=== PATIENT | female | born 1940 | race Caucasian/White ===

== ENCOUNTER 2022-05-08 08:00 | Day surgery (SDC) | payer OTHER, MEDICAID, SELFPAY ==
[2022-04-25 10:20] VITALS: BMI 25.4
--- NOTE | 2022-05-08 07:41 | WPDHPUPDATE1 ---
History and Physical Update Update Date/Time: 05/08/22 07:41 History and Physical has been reviewed, including an updated exam of the patient. There are NO changes in the patient's condition. Risks, benefits, and alternatives have been discussed and questions answered. Patient agrees to proceed with procedure.
--- NOTE | 2022-05-08 07:44 | P.OP_ITS ---
Procedure Note - Detailed Date of Procedure 05/08/22 Pre-op Diagnosis Fuch's Corneal Dystrophy Post-op Diagnosis Same Procedure Performed DMEK OD eye Surgeon Henry Guo MD Anesthesia MAC (with peribulbar block) and Other (Monitored anesthesia care and local retrobulbar block) Description of Procedure Following discussion of the risks, benefits, and alternatives, informed consent was obtained and the surgical permission form was signed and witnessed. The operative site was marked in the holding area after consulting the patient's office chart. Monitoring devices were placed on the patient and the patient was positioned in the supine position. After an appropriate intravenous sedation, a peribulbar block was given to the operative eye using a 25 gauge 5/8 inch needle. A total of 4 cc of a mixture of 0.75% Marcaine and 2% lidocaine was given. The patient was then prepped and draped in the normal sterile ophthalmic fashion. A Janes eyelid speculum was inserted into the operative eye. A 15-degree blade was used to make two paracenteses sites. The 8 mm optical zone marker was used to dominik the surface of the cornea. Provisc was injected into the anterior chamber to deepen and firm it. A 2.4 mm keratome was used to create a triplanar clear cornea incision temporally. The previously made inferior peripheral iridotomy was examined and noted to be patent. A reverse Sinskey hook was used to score Descemet's membrane just outside the 8 mm optical zone dominik. A Moiz's Descemet's stripper was used to remove the host Descemet's membrane. The irrigation and aspiration was used to remove any residual viscoelastic from the anterior chamber. Attention was then directed to the donor corneal button which was lightly punched endothelial side up using an 7.75mm punch. The Descemet's membrane was tripped carefully and the scroll stained with trypan blue stain. The donor Descemet's scroll was loaded into the [employer] tube injector and slowly injected into the anterior chamber with care so as to keep the chamber shallow. A single 10-0 nylon suture was used to close the corneal wound. BSS was injected into the anterior chamber to unfold the tissue. Care was taken to ensure correct orientation with endothelium on outside of DM curl. The graft was unfolded using tapping motions and then centered using golf swing motions on the cornea. A full anterior chamber fill with 20% SF6 gas/80% filtered air was then given to float the donor lenticule. All knots were cut short and buried. At the end of the case, the gas bubble was reduced to expose the inferior angle with the patient in an upright position,. The eyelid speculum was removed and the patient's face and eye were cleaned with wet and dry gauze. Antibiotic, steroid and ointment were applied to the operative eye. The eye was patched with an eye pad and a omer shield. The patient was taken to the recovery room in a stable condition. The patient was left lying in supine position with nose up towards the ceiling positioning for a further 2 hours in the holding area. Sponges, needle and instrument counts: all correct at conclusion of the case. Complications None Condition Stable Disposition Same day
[2022-05-08] MEDS: OFLOXACIN 0.3% OPHTH SOLN 5 ML BTL 1 DROP AFFCTD EYE (08:32)
[2022-05-08] MEDS: TETRACAINE HCL 0.5% OPHTH SOLN 4 ML BTL 1 DROP AFFCTD EYE ×3 (08:33→08:43)
[2022-05-08] MEDS: PILOCARPINE HCL 2% OP SOLN 15 ML BTL 1 DROP AFFCTD EYE ×3 (08:33→08:42)
[2022-05-08 08:35] VITALS: BP 108/52; PULSE 63; RESP 20; TEMP 37; O2SAT 98
--- NOTE | 2022-05-08 08:53 | WPDHPUPDATE1 ---
History and Physical Update Update Date/Time: 05/08/22 08:53 History and Physical has been reviewed, including an updated exam of the patient. There are NO changes in the patient's condition. Risks, benefits, and alternatives have been discussed and questions answered. Patient agrees to proceed with procedure.
[2022-05-08] MEDS: LIDOCAINE HCL 2% JELLY 5 ML TUBE 1 APPLIC AFFCTD EYE (09:03)
--- NOTE | 2022-05-08 09:03 | P.PNAN_ITS ---
Anes - Initial Pre Proc Eval Procedure: Operation Date: 05/08/22 09:00 Proposed Procedures p Descemet Membrane Endothelial Keratoplasty-Right Eye - Henry Guo MD Date/Time: 05/08/22 09:03 Surgeon: Henry Guo MD Pre Op Diagnosis: Fuch's Corneal Dystrophy Patient Data Age: 82 Gender: F Height: 1.52 m Weight: 59 kg Last Vital Signs Temp 37.0 C 05/08/22 08:35 Pulse 63 05/08/22 08:35 Resp 20 05/08/22 08:35 BP 108/52 L 05/08/22 08:35 Pulse Ox 98 05/08/22 08:35 O2 Del Method Room Air 05/08/22 08:35 Allergies Allergy/AdvReac Type Severity Reaction Status Date / Time No Known Allergies Allergy Verified 05/08/22 08:27 Home Medications Medication Instructions Recorded Confirmed Type albuterol sulfate 90 mcg/actuation 1 inh inhalation PRN 04/25/22 05/08/22 History aerosol inhaler amlodipine 5 mg tablet 1 tablet PO DAILY 04/25/22 05/08/22 History aspirin 81 mg chewable tablet 81 mg PO DAILY 04/25/22 05/08/22 History (Aspirin Childrens) atorvastatin 40 mg tablet 1 tablet PO DAILY 04/25/22 05/08/22 History carvedilol 6.25 mg tablet 1 tablet PO BID 04/25/22 05/08/22 History cetirizine 10 mg tablet (Zyrtec) 10 mg PO DAILY 04/25/22 05/08/22 History fluorometholone 0.1 % eye 1 drp LEFT EYE DAILY 04/25/22 05/08/22 History drops,suspension furosemide 20 mg tablet 1 tablet PO DAILY 04/25/22 05/08/22 History lisinopril 20 mg tablet 1 tablet PO DAILY 04/25/22 05/08/22 History prednisone 2.5 mg tablet 1 tablet PO DAILY 04/25/22 05/08/22 History tramadol 50 mg tablet 1 tablet PO PRN 04/25/22 05/08/22 History Patient hx anesthesia problems: none Family hx anesthesia problems: none Results Review: All pre-operative results and documents have been reviewed as part of the pre- operative evaluation. [facility] Past Medical History Medical History CAD (coronary artery disease) CVA (cerebral vascular accident) Hyperlipidemia Hypertension Surgical History Surgical History Stented coronary artery Social History Social History Smoking status: Never smoker Alcohol intake: current Substance use: never Substance use type: does not use Living arrangements: with family Spiritual care concerns: No Anes - Eval Final PreProcedure Day of Procedure 05/08/22 09:03 Patient weight: normal Heart: regular rate and rhythm Lungs: clear to auscultation Airway: Mallampati scale class II Neurological: other (alert) Last oral intake: >/= 8 hours ASA classification: III Emergent: no Anesthetic plan: proceed Anesthesia type and monitoring: general GIVS and standard monitoring Results Review: All pre-operative results and documents have been reviewed as part of the pre- operative evaluation. Informed Consent: The patient's anesthetic plan and its attendant risks and benefits were discussed with the patient/family/POA. Questions were solicited and answers provided to the satisfaction of the patient/family/POA.
[2022-05-08 09:09] VITALS: BMI 31.2
[2022-05-08 09:10] VITALS: BMI 25.8
--- NOTE | 2022-05-08 10:33 | SUR.OPER ---
sf6 gas injected intraocularly rt side by .
[2022-05-08 10:40] VITALS: BP 111/62; PULSE 60; RESP 16; O2SAT 98
--- NOTE | 2022-05-08 11:03 | WPDANESPN ---
Anes - Prog Note Post-Op Date/Time: 05/08/22 11:03 Cardiovascular status: normal Respiratory status: normal Airway patency: baseline Mental status: baseline Post-Op hydration status: normal Vital Signs: Last Vital Signs Temp 37.0 C 05/08/22 08:35 Pulse 60 05/08/22 10:40 Resp 16 05/08/22 10:40 BP 111/62 05/08/22 10:40 Pulse Ox 98 05/08/22 10:40 O2 Del Method Room Air 05/08/22 10:40 Pain Score (VAS): 0 Patient Feedback: Patient satisfied with anesthetic care.
--- NOTE | 2022-05-08 11:19 | SUR.PREOP ---
PT TOLERATING LYING FLAT W/O ISSUE. COMFORT MEASURES PROVIDED. NO DISTRESS NOTED.
[2022-05-08] MEDS: acetaZOLAMIDE TAB 250 MG TABLET PO (11:41)
--- NOTE | 2022-05-08 11:59 | SUR.PHASEII ---
1140 ONE HOUR POST PROCEDURE. EYE PATCH INTACT/NO DRAINAGE. DENIES PAIN. INSTRUCTION PROVIDED/ACKNOWLEDGES UNDERSTANDING.
== END 2022-05-08 11:55 | disposition home or self-care (01) ==
LOC: ASC 08:11
PROC: (CPT 66983; principal; 2022-05-08 09:00)
DX: H18.511 Endothelial corneal dystrophy, right eye (principal)
CPT/HCPCS: 65756; V2785